=== PATIENT | female | born 1995 | race Caucasian/White ===

== ENCOUNTER 2018-09-15 17:11 | Outpatient (REF) | payer MEDICAID, SELFPAY ==
[2018-09-15 20:25] LABS: Anion Gap 7.7 mmol/L (3-11); BUN 19 mg/dL (7-18); CO2 31.3 mmol/L (21.0-32.0); CREATININE 1.09 mg/dL (0.55-1.02); Calcium 9.2 mg/dL (8.5-10.1); Chloride 103 mmol/L (98-107); Glucose 99 mg/dL (70-100); Potassium 4.1 mmol/L (3.5-5.1); Sodium 142 mmol/L (136-145)
== END 2018-09-15 17:31 ==
LOC: NCHCN 17:11
PROVIDERS: PCP Physician Assistant Medical; Visit Provider Physician Assistant Medical
DX: I10 Essential (primary) hypertension (principal)
CPT/HCPCS: 80048

== ENCOUNTER 2020-04-27 12:21 | Outpatient (REF) | payer MEDICAID, SELFPAY ==
[2020-05-01 01:15] LABS: SARS-CoV-2 RNA Undetected (Undetected)
== END 2020-04-27 12:41 ==
LOC: NCHCN 12:21
PROVIDERS: PCP Physician Assistant Medical; Visit Provider Physician Assistant
DX: Z20.828 Contact with and (suspected) exposure to other viral communicable diseases (principal)
CPT/HCPCS: U0003

== ENCOUNTER 2023-07-26 01:39 | Emergency (ER) | payer MEDICAID, SELFPAY ==
[2023-07-26 02:04] VITALS: BP 157/99; PULSE 87; RESP 16; TEMP 35.9; O2SAT 99
--- NOTE | 2023-07-26 02:17 | ED.GENADUL_ITS ---
Discharge Plan Disposition Patient Disposition: [facility] Condition: Good Discharge Details Clinical Impression: Alcohol intoxication Primary Care Provider: Roberto Carlos Reeves V ED Provider: Candis Cagle Discharge Instructions Additional Instructions: Follow up with your primary care doctor regarding your blood pressure; call on Thursday to schedule an appointment. Referrals: Roberto Carlos Reeves V [Primary Care Provider] - Medical Decision Making 28yo M with hx of HTN, anxiety, presenting via [facility] for medical clearance for protective care. Slightly hypertensive on arrival, vital signs otherwise reassuring. Reports URI symptoms and headache x several days. No recent trauma. No headache red flags, no neurlogic symptoms, not concerned for intracranial mass or hemmoraghe. No respiratory distress. Would not pursue labs or imaging. Medically cleared, discharged with PD. HPI General Date/Time Provider Initiated Documentation: 07/26/23 01:39 . Limitations to Documentation: no limitations . Information obtained by: patient . HPI Narrative: 28yo M with hx of HTN, anxiety, presenting via [facility] for medical clearance for protective care. Reports drinking a six pack today. Currently has mild headache as well as cough and rhinnoreha x several days. No fevers. No associated nausea, vomiting, or shortness of breath. No numbness, tingling, or weakness. Concerned he may have COVID. He is otherwise in his usual state of health. Related Data Home Medications Medication Instructions Recorded Confirmed methadone 100 mg PO DAILY 07/26/23 07/26/23 Allergies Allergy/AdvReac Type Severity Reaction Status Date / Time No Known Allergies Allergy Unverified 07/26/23 02:09 General Stated Complaint: GenMedical ROGELIO: 4 Review of Systems Narrative: see HPI PFS All Active Problems (Updated 07/26/23 @ 02:18 by Candis Cagle MD) Alcohol intoxication (Acute) Social History Smoking risk assessment performed?: No Exam Narrative Exam Narrative: General: Alert, well appearing, well nourished, in no acute distress. Head: Normocephalic, atraumatic Neck: Trachea midline, Neck supple. ENT: MMM. Cardiac: RRR, no murmurs appreciated Resp: No respiratory distress. CTAB. Abd: Soft, non-distended, nontender Extremities: No deformities. No peripheral edema. Neurologic: GCS 15. Moves all extremities freely against gravity. Full pain free ROM at neck. Course Vital Signs Vital signs: Vital Signs Temperature 35.9 C L 07/26/23 02:04 Pulse 87 07/26/23 02:04 Respiratory Rate 16 07/26/23 02:04 Blood Pressure 157/99 H 07/26/23 02:04 Pulse Oximetry 99 07/26/23 02:04 Temperature 35.9 C L 07/26/23 02:04 Temperature Source Temporal Artery Scan 07/26/23 02:04 Pulse 87 07/26/23 02:04 Respiratory Rate 16 07/26/23 02:04 Blood Pressure 157/99 H 07/26/23 02:04 Blood Pressure Position Sitting 07/26/23 02:04 Pulse Oximetry 99 07/26/23 02:04 Oxygen Delivery Method Room Air 07/26/23 02:04 Oxygen Flow Rate 0 07/26/23 02:04 Pain Level 0 07/26/23 02:04
[2023-07-26 02:28] VITALS: RESP 16
== END 2023-07-26 02:25 ==
PROVIDERS: Emergency Provider Student in an Organized Health Care Education/Training Program; PCP Physician Assistant Medical
DX: F10.929 Alcohol use, unspecified with intoxication, unspecified (principal); I10 Essential (primary) hypertension; F41.9 Anxiety disorder, unspecified; R51.9 Headache, unspecified; R05.9 Cough, unspecified
CPT/HCPCS: 99285; 99283

== ENCOUNTER 2024-01-18 16:32 | Emergency (ER) | payer MEDICAID, SELFPAY ==
[2024-01-18] VITALS (30 sets, daily range): BP systolic 129–158; BP diastolic 59–121; PULSE 82–107; RESP 17–24; TEMP 37; O2SAT 88–100
--- NOTE | 2024-01-18 16:30 | RT.EKG_ITS ---
APPROVED REPORT Exam: Resting ECG Reason for Exam: CHEST PAIN Patient Location: E HR:94 bpm ECG Measurements Heart Rate 94 AXIS MS 129 P 24 QRSd 86 QRS 45 QT 356 T -24 QTc 446 Conclusion Sinus rhythm...normal P axis, V-rate 60- 99
[2024-01-18] MEDS: Albuterol/Ipratropium 3 ML UPD VIAL UPD (17:09)
[2024-01-18] MEDS: ACETAMINOPHEN 1,000 MG/100 ML BTL 400 MG IVPB (17:10)
[2024-01-18] MEDS: Normal Saline 1,000 ML 1000 ML IV (17:10)
[2024-01-18 17:13] LABS: HCT 37.1 % (40.0-50.0); HGB 12.6 g/dL (13.5-17.5); MCH 29.9 pg (27.0-33.0); MCV 88 fL (80-95); MPV 9.5 fL (8.0-11.0); Platelet Count 189 10^3/uL (130-400); RBC 4.22 10^6/uL (4.36-5.78); RDW-SD 38.6 fL
[2024-01-18 17:36] LABS: ALT 59 U/L (16-63); AST 20 U/L (15-37); Albumin 3.4 g/dL (3.4-5.0); Alkaline Phosphatase 84 U/L (46-116); Anion Gap 7.7 mmol/L (3-11); BUN 15 mg/dL (7-18); Bilirubin, Total 1.9 mg/dL (0.2-1.0); CO2 29.3 mmol/L (21.0-32.0); CREATININE 1.1 mg/dL (0.70-1.30); Chloride 98 mmol/L (98-107); Estimated GFR 92.61 (mL/min/1.73m2); Glucose 138 mg/dL (74-106); Lipase 14 U/L (16-77); Potassium 3.3 mmol/L (3.5-5.1); Sodium 135 mmol/L (136-145); Total Protein 7.7 g/dL (6.4-8.2)
[2024-01-18 17:37] LABS: Troponin I < 50 ng/L (< or =60)
[2024-01-18 17:42] LABS: Absolute Monocyte Count 0.35 10^3/uL (0.1-0.8); Bands % 16 %; Diff Comment Manual Differential; Myelocytes % 2; RBC Morphology Normal
--- NOTE | 2024-01-18 17:45 | DI.CT_ITS ---
Exam(s) CT CHEST PE CTA EXAM: CT CHEST PE CTA CLINICAL HISTORY: elevated ddimer, s1q3t3, hemoptysis. TECHNIQUE: Imaging Protocol: CT angiography of the chest was performed using pulmonary embolus april col. Multi planar reconstructions were performed. CONTRAST MATERIAL: Intravenous: Omnipaque 350 Contrast volume: 100 cc COMPARISON: None FINDINGS: PULMONARY ARTERIES: No obvious intraluminal filling defects to suggest acute pulmonary emboli.. LUNGS: There is a large area of confluent infiltrate in the right upper lobe extending from the right lung apex down to the minor fissure with some fissure bulging evident. Size of this infiltrate omid ures approximately 9 cm craniocaudal., Not associated with a pleural effusion and not associated with overlying rib destruction. Most probably infectious in this age group although cannot exclude neopl asm or large area of pulmonary infarction. Similar finding not seen on the opposite-left side.. The re are no pleural effusions. MEDIASTINUM: There is subcarinal adenopathy. Also some adenopathy in the right hilum. Visualized th yroid unremarkable. CARDIAC: Heart size is upper normal. There is no pericardial effusion.Caliber of the thoracic aorta is within normal limits. No dissection. There is no significant shift of the interventricular septum . PARTIALLY VISUALIZED UPPERMOST ABDOMEN: No adrenal masses. Hepatic steatosis noted. OSSEOUS: No significant osseous lesions.. IMPRESSION: 1. Very large area of infiltrate in the right upper lobe as described above..No evidence of obvious a cute pulmonary emboli. No pleural effusions. 2. Follow-up to resolution recommended. Discussed by phone with CHRISTIANO BARROS 01/18/2024 6:48 p.m. RADIATION DOSE DELIVERED: 712.9mGy.cm Total DLP DATA REPOSITORY: All CT scans at this facility are submitted to the National Radiology Data Registry (NRDR) Dose Index Registry (DIR) with the [employer] (A[employer]). RADIATION OPTIMIZATION: All CT scans at this facility use at least one of these dose optimization te chniques: automated exposure control; mA and/or kV adjustment per patient size (includes targeted exa ms where dose is matched to clinical indication); or iterative reconstruction.
[2024-01-18 17:46] LABS: D-Dimer 559 ng/mlFEU (<500)
[2024-01-18 18:01] LABS: COVID-19 PCR Negative (Negative); Influenza A PCR Negative (Negative); Influenza B PCR Negative (Negative); RSV PCR Negative (Negative)
[2024-01-18 18:02] LABS: Source NASOPHARYNX
[2024-01-18] MEDS: Normal Saline - Diluent 50 ML VIAL IJ (18:20)
[2024-01-18] MEDS: Omnipaque 350 MG/ML 100 ML BTL IJ (18:20)
[2024-01-18] MEDS: Amox. 875/Clav. 125, 2 TABS/BTL 1 TAB PO (20:02)
[2024-01-18] MEDS: Albuterol HFA 8 GM 60 PUFF INH IH (20:02)
[2024-01-18] MEDS: Doxycycline Hyclate 100 MG, 2 CAPS/BTL PO (20:03)
--- NOTE | 2024-01-18 22:50 | W.ED.GENAD ---
Discharge Plan Disposition Patient Disposition: Home Discharge Details Clinical Impression: Pneumonia Primary Care Provider: Roberto Carlos Reeves V ED Provider: Marbella Do Home Meds and New Rx's Prescriptions: New amoxicillin-pot clavulanate 875-125 mg tablet 1 tab PO BID Qty: 18 0RF doxycycline hyclate 100 mg capsule 100 mg PO BID Qty: 18 0RF Continued methadone 75 mg PO DAILY Patient Comments: @ [facility] Discharge Instructions Instructions: Pneumonia (ED) Additional Instructions: take antibiotics as prescribed yogurt daily while on antibiotics inhaler, 2 puffs every 4-6 hours increased fluids recheck in 48 hours with pcp return with worsening shortness of breath, inability to take medications, or should any new concerns arise Referrals: Roberto Carlos Reeves V [Primary Care Provider] - 2 days Discharge Data Discharge Date/Time-TO BE ENTERED AT DEPARTURE: 01/18/24 20:03 HPI General Date/Time Provider Initiated Documentation: 01/18/24 16:40. HPI Narrative: This 28-year-old male presents with hemoptysis, chest pain, cough for the past several days. Has had chills denies known fever. Denies any nausea or vomiting. History of polysubstance abuse, no current substance abuse and has never used IV drugs per patient. Takes methadone. Denies any calf pain or swelling, recent flights, surgeries, long drives, or history of coagulopathy. Denies any left-sided chest pain or history of coronary artery disease. States the pain is exacerbated with deep breathing. Related Data Home Medications Medication Instructions Recorded Confirmed methadone 75 mg PO DAILY 07/26/23 01/18/24 amoxicillin 875 mg-potassium 1 tab PO BID #18 tabs 01/18/24 clavulanate 125 mg tablet doxycycline hyclate 100 mg capsule 100 mg PO BID #18 caps 01/18/24 Previous Rx's Medication Instructions Recorded amoxicillin 875 mg-potassium 1 tab PO BID #18 tabs 01/18/24 clavulanate 125 mg tablet doxycycline hyclate 100 mg capsule 100 mg PO BID #18 caps 01/18/24 Allergies Allergy/AdvReac Type Severity Reaction Status Date / Time No Known Allergies Allergy Unverified 01/18/24 16:40 General Stated Complaint: Chest Pain ROGELIO: 2 Exam Narrative Exam Narrative: Alert and oriented 28-year-old male in no acute respiratory distress, resting his membranes, pupils equal round reactive to light and accommodation, cardiac rate rhythm regular, wheezes to her right lung without significant respiratory distress, no pallor, alert and oriented x 4, no peripheral edema or tenderness to calves, Course Vital Signs Vital signs: Vital Signs Temperature 37.0 C 01/18/24 16:35 Pulse 96 H 01/18/24 16:35 Respiratory Rate 24 01/18/24 16:35 Blood Pressure 158/112 H 01/18/24 16:35 Pulse Oximetry 97 01/18/24 16:35 Temperature 37.0 C 01/18/24 19:57 Temperature Source Oral 01/18/24 16:35 Pulse 89 01/18/24 19:57 Pulse 94 H 01/18/24 19:50 Respiratory Rate 21 01/18/24 19:57 Respiratory Effort Normal, Non-Labored, Short of Breath 01/18/24 17:14 Respiratory Depth Normal 01/18/24 17:14 Respiratory Pattern Normal 01/18/24 17:14 Blood Pressure 129/67 01/18/24 19:57 Blood Pressure Mean 88 01/18/24 19:54 Blood Pressure Position Sitting 01/18/24 16:35 Pulse Oximetry 97 01/18/24 19:57 Oxygen Delivery Method Room Air 01/18/24 17:09 Oxygen Flow Rate 0 01/18/24 17:09 Pain Level 10 01/18/24 17:14 Lab/Test Results Lab/Test Results: Laboratory Tests Range/Units 01/18/24 01/18/24 01/18/24 17:03 17:14 19:48 WBC (4.4-10.8) 10^3/uL 17.50 H RBC (4.36-5.78) 10^6/uL 4.22 L Hgb (13.5-17.5) g/dL 12.6 L Hct (40.0-50.0) % 37.1 L MCV (80-95) fL 88 MCH (27.0-33.0) pg 29.9 MCHC (32.0-36.0) % 34.0 RDW (11.8-14.1) % 12.0 Plt Count (130-400) 10^3/uL 189 MPV (8.0-11.0) fL 9.5 Immature Gran % See Differential Neutrophils % % 76.0 Band Neutrophils % % 16 Lymphocytes % % 4.0 Monocytes % % 2.0 Eosinophils % % 0.0 Basophils % % 0.0 Myelocytes % 2 Nucleated RBC % (0.0-0.3) % 0.0 Absolute Neutrophils (1.2-6.7) 10^3/uL 16.10 H Absolute Lymphocytes (1.2-3.4) 10^3/uL 0.70 L Absolute Monocytes (0.1-0.8) 10^3/uL 0.35 Absolute Eosinophils (0.0-0.7) 10^3/uL 0.00 Absolute Basophils (0.0-0.2) 10^3/uL 0.00 RBC Morphology Normal D-Dimer (<500) ng/mlFEU 559 H Sodium (136-145) mmol/L 135 L Potassium (3.5-5.1) mmol/L 3.3 L Chloride (98-107) mmol/L 98 Carbon Dioxide (21.0-32.0) mmol/L 29.3 Anion Gap (3-11) mmol/L 7.7 BUN (7-18) mg/dL 15 Creatinine (0.70-1.30) mg/dL 1.1 Est GFR (CKD-EPI 2020) (mL/min/1.73m2) 92.61 Glucose (74-106) mg/dL 138 H Calcium (8.5-10.1) mg/dL 9.0 Total Bilirubin (0.2-1.0) mg/dL 1.9 H AST (15-37) U/L 20 ALT (16-63) U/L 59 Alkaline Phosphatase (46-116) U/L 84 Troponin I (< or =60) ng/L < 50 Cancelled Total Protein (6.4-8.2) g/dL 7.7 Albumin (3.4-5.0) g/dL 3.4 Lipase (16-77) U/L 14 L COVID-19 Source NASOPHARYNX SARS-CoV-2 (PCR) (Negative) Negative Influenza Type A (PCR) (Negative) Negative Influenza Type B (PCR) (Negative) Negative RSV (PCR) (Negative) Negative Medical Decision Making 28-year-old male with hemoptysis and right-sided chest pain with wheezes on exam. D-dimer was elevated after reviewing EKG noting S1q3t3. CTA shows evidence of right upper lobe infiltrate consistent with clinical exam, DuoNeb given with improvement in symptoms, no hypoxia, no respiratory distress. Port score does not meet criteria for admission and while this patient is high risk he is not currently using any illicit substances and is well-controlled on his methadone. He is not in any respiratory distress and feels as though he can take his antibiotics as prescribed. He did place patient on Augmentin and doxycycline after using the community-acquired pneumonia algorithm and patient risk factors with his history of tobacco use. He is ambulatory without significant distress. He will use an inhaler at home and take the antibiotics as prescribed. CT results were reviewed they are available and diagnostic labs are interpreted as well. Flu COVID and RSV are negative. Patient will take a multivitamin miles of hypokalemia 3.3. We did discuss admission versus discharge home and patient is comfortable with discharge home at this time, he is given very low threshold to return should he have new or worsening complaints. Quality:SDOH Health Related Social Needs: No Data to Display [facility] All Active Problems (Updated 01/18/24 @ 19:39 by FIORELLA Gurrola) Pneumonia (Acute) Social History Smoking/Tobacco Use Status: Current every day Tobacco Type: e-cigarettes Smoking risk assessment performed?: Yes Alcohol Intake: current Alcohol Intake frequency: a few times a week Alcohol type: beer Drug use: Current Sobriety Housing: other Do you feel safe at home: Yes Do you feel safe in your relationship?: Yes PAWSS Have you Been Recently Intoxicated or Drunk Within the Last 30 days?: Yes Have you Ever Experienced Previous Episodes of Alcohol Withdrawal?: No Have you ever Experienced Withdrawal Seizures?: No Have you ever Experienced Delirium Tremens(DT)s?: No Have you ever undergone Alcohol Rehabilitation Treatment (i.e, inpt ot outpatient treatment programs)?: No Have you ever Experienced Blackouts?: No Have you ever Combined Alcohol with other Downers within the last 90 days?: No Have you ever Combined Alcohol with any other Substance of Abuse during the last 90 days?: No Positive Blood Alcohol level on Presentation? [PCS.BAL]: No Evidence of Increased Autonomic Activity (i.e. HR>120, tremor, sweating, agitation, nausea)?: No Result: 1
== END 2024-01-18 20:03 | disposition home or self-care (01) ==
PROVIDERS: Emergency Provider Physician Assistant; PCP Physician Assistant Medical
DX: J18.9 Pneumonia, unspecified organism (principal); R07.89 Other chest pain; R05.1 Acute cough; F17.290 Nicotine dependence, other tobacco product, uncomplicated
CPT/HCPCS: 36415; 71275; 80053; 83690; 87637; 93005; 94640; 96361; 96374; 99285; 84484; 85025; 85379; 93010; 99283; J0131; J3490; J7620